=== PATIENT | female | born 1945 | race Caucasian/White ===

== ENCOUNTER 2021-04-19 14:30 | Emergency (ER) | payer OTHER, MEDICAID ==
[~2021-04-19] VITALS: Ht 162.6 cm; Wt 61.2 kg
[2021-04-19 14:58] VITALS: BP_SYST 142
--- NOTE | 2021-04-19 15:15 | NUR ---
Dr. Leora gonzalez to evaluate pt status.
--- NOTE | 2021-04-19 15:35 | NUR ---
Labs drawn and sent by lab.
[2021-04-19 15:59] LABS: ANION GAP 6 (5-15); CALCIUM 9.3 mg/dL (8.4-11.0); CHLORIDE 104 mmol/L (98-107); CREATININE 0.73 mg/dL (0.55-1.30); GLUCOSE 202 mg/dL (70-99); POTASSIUM 3.7 mmol/L (3.5-5.1); SODIUM SERUM 140 mmol/L (136-145); UREA NITROGEN, BLOOD 18 mg/dL (8-21)
[2021-04-19 16:03] LABS: BASOPHILS # (AUTO) 0.1 K/uL (0.0-0.2); BASOPHILS % (AUTO) 1.5 % (0.0-2.0); EOSINOPHILS # (AUTO) 0.3 K/uL (0.0-0.4); EOSINOPHILS % (AUTO) 4.9 % (0.0-4.0); HEMATOCRIT 37.7 % (36-48); HEMOGLOBIN 12.6 g/dL (12.0-16.0); LYMPHOCYTES # (AUTO) 1.7 K/uL (1.0-5.5); LYMPHOCYTES % (AUTO) 30.1 % (20.5-51.5); MEAN CORPUSCULAR HEMOGLOBIN 28 pg (27-31); MEAN CORPUSCULAR HGB CONC 33 % (32-36); MEAN CORPUSCULAR VOLUME 85 fL (79.0-98.0); MONOCYTES # (AUTO) 0.5 K/uL (0.0-1.0); MONOCYTES % (AUTO) 8.7 % (1.7-9.3); NEUTROPHILS % (AUTO) 54.8 % (40.0-70.0); PLATELET COUNT (AUTO) 185 K/uL (130-430); RED BLOOD CELL COUNT(AUTO) 4.44 MIL/uL (4.2-6.2); RED CELL DISTRIBUTION WIDTH 13.8 % (9.0-15.0); WHITE BLOOD COUNT (AUTO) 5.5 K/uL (4.8-10.8)
[2021-04-19 16:04] LABS: ALANINE AMINOTRANSFERASE 23 U/L (12-78); ALBUMIN 3.6 g/dL (3.4-4.8); ASPARTATE AMINOTRANSFERASE 24 U/L (10-37); CHOLESTEROL 254 mg/dL (<200); HDL CHOLESTEROL 83 mg/dL (>55); LDL CHOLESTEROL 136 mg/dL (<100); TOTAL BILIRUBIN 0.5 mg/dL (0.0-1.0); TRIGLYCERIDES 131 mg/dL (30-150)
[2021-04-19 16:16] LABS: ACETAMINOPHEN < 1 ug/mL (1-30)
[2021-04-19 16:17] LABS: ALCOHOL, BLOOD < 3 mg/dL (<10)
--- NOTE | 2021-04-19 16:54 | NUR ---
Pt to hallway bed for evaluation.
--- NOTE | 2021-04-19 16:55 | NUR ---
MRSA and Covid swab obtained and sent to lab for analysis.
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
--- NOTE | 2021-04-19 17:40 | NUR ---
Urine specimen obtained and sent to lab for analysis.
[2021-04-19 17:49] LABS: BILIRUBIN,URINE NEGATIVE (NEGATIVE); BLOOD, URINE NEGATIVE (NEGATIVE); COLOR,URINE YELLOW (YELLOW); GLUCOSE,URINE 2+ (NEGATIVE); KETONES,URINE NEGATIVE (NEGATIVE); LEUKOCYTE ESTERASE ,URINE 3+ (NEGATIVE); NITRITE, URINE NEGATIVE (NEGATIVE); PROTEIN URINE NEGATIVE (NEGATIVE); UROBILINOGEN,URINE 0.2 (0.2-1.0)
[2021-04-19 18:11] LABS: CLARITY/URINE HAZY (CLEAR)
[2021-04-19 18:18] LABS: BARBITURATE, URINE NEGATIVE (NEG <=200); BENZODIAZEPINE, URINE NEGATIVE (NEG <=150); CANNABINOID, URINE NEGATIVE (NEG <=50); COCAINE, URINE NEGATIVE (NEG <=150); METHAMPHETAMINES SCREEN,URINE NEGATIVE (NEG <=500); OPIATE, URINE NEGATIVE (NEG <=100); PHENCYCLIDINE SCREEN,URINE NEGATIVE (NEG <=25); UR TRICYCLIC ANTIDEPRESSANTS POSITIVE (NEG <=300); URINE AMPHETAMINE NEGATIVE (NEG <=500); URINE METHADONE NEGATIVE (NEG <=200); URINE OXYCODONE SCREEN NEGATIVE (NEG <=100)
[2021-04-19 18:19] LABS: URINE PROPOXYPHENE SCREEN NEGATIVE (NEG <=300)
[2021-04-19 18:27] LABS: RBC,URINE 0-3 /HPF (0-3)
[2021-04-19 18:28] LABS: BACTERIA,URINE MODERATE /HPF (None Seen)
--- NOTE | 2021-04-19 18:40 | NUR ---
Report given to Olayinka @ [facility]. ETA is approximately 2100 for transport.
[2021-04-19] MEDS ORDERED: cefTRIAXone 1 GM in D5W 50 ML IV ONE (18:45)
[2021-04-19] MEDS ORDERED: cefTRIAXone 1 GM VIAL ONE (18:57)
[2021-04-19] MEDS ORDERED: cefTRIAXone 1 GM VIAL IM ONE (19:00)
--- NOTE | 2021-04-19 19:10 | NUR ---
Report to LEE Chairez who will assume care.
--- NOTE | 2021-04-19 20:02 | NUR ---
ASSUMED CARE OF PT FROM [facility]. AWARE OF DISCHARGE AT ETA 2100.
--- NOTE | 2021-04-19 21:00 | NUR ---
PT RESTING IN BED WITH DAUGHTER AT BEDSIDE. AWAITING AMBULANCE FOR TRANSPORT.
[2021-04-19] MEDS ORDERED: LORazepam 2 MG/ML VIAL IM ONE (22:30)
[2021-04-19] MEDS ORDERED: HALOPERIDOL LACTATE 5 MG/ML VIAL IM ONE (22:30)
[2021-04-19] MEDS ORDERED: HALOPERIDOL LACTATE 5 MG/ML VIAL ONE (22:31)
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
--- NOTE | 2021-04-19 23:55 | NUR ---
pt is asleep in bed, vss.
[2021-04-20 02:17] VITALS: BP_SYST 142
--- NOTE | 2021-04-20 02:17 | NUR ---
Patient given written and verbal discharge instructions and verbalizes understanding. ER MD discussed with patient the results and treatment provided. Patient in stable condition. ID arm band removed. Patient educated on pain management and to follow up with PMD. Pain Scale 0/10. Opportunity for questions provided and answered. Medication side effect fact sheet provided.
--- NOTE | 2021-04-21 13:37 | NUR ---
RECEIVED +MRSA SWAB FROM LAB, FAXED TO [facility] WHERE PT WAS TRANSFERRED TO.
== END 2021-04-20 02:17 ==
LOC: SED 14:30
DX: R45.6 Violent behavior (principal); F20.9 Schizophrenia, unspecified; E11.9 Type 2 diabetes mellitus without complications; Z20.822 Contact with and (suspected) exposure to COVID-19; Z79.899 Other long term (current) drug therapy
CPT/HCPCS: 36415; 80053; 80061; 80307; 81000; 83036; 85025; 87081; 87086; 87426; 96372; 99285; G0480; J0696; J1630; G0481; G0482